=== PATIENT | female | born 1955 | race African-American/Black ===

== ENCOUNTER 2022-11-22 20:09 | Emergency (ER) | payer OTHER ==
[~2022-11-22] VITALS: Ht 160 cm; Wt 100.7 kg
[2022-11-22 20:45] VITALS: BP 130/90; PULSE 76; RESP 17; TEMP 97.8; O2SAT 98
--- NOTE | 2022-11-22 20:48 | NUR ---
TO LOBBY A/W BED AMBULATORY
[2022-11-22] MEDS ORDERED: IBUP-2213 PO (21:55)
--- NOTE | 2022-11-22 22:07 | NUR ---
Patient discharged with v/s stable. Written and verbal after care instructions given and explained. Patient verbalized understanding. Ambulatory with steady gait. All questions addressed prior to discharge. Advised to follow up with PMD.
== END 2022-11-22 22:07 | disposition home or self-care (01) ==
LOC: MED 20:09
DX: S83.92XA Sprain of unspecified site of left knee, initial encounter (principal); E11.9 Type 2 diabetes mellitus without complications; M19.90 Unspecified osteoarthritis, unspecified site; Z79.1 Long term (current) use of non-steroidal anti-inflammatories (NSAID); X58.XXXA Exposure to other specified factors, initial encounter; Y92.89 Other specified places as the place of occurrence of the external cause; Y93.89 Activity, other specified; Y99.8 Other external cause status
CPT/HCPCS: 73560; 99283